=== PATIENT | male | born 1980 | race African-American/Black ===

== ENCOUNTER 2017-08-15 20:15 | Emergency (ER) | payer OTHER ==
[~2017-08-15] VITALS: Ht 185.4 cm; Wt 77.1 kg
[2017-08-15] MEDS ORDERED: IBUPROFEN 800800 M1 PO (21:55)
[2017-08-16 04:23] VITALS: BP 98/68
== END 2017-08-16 01:00 | disposition home or self-care (01) ==
LOC: ER 20:15
DX: S01.311A Laceration without foreign body of right ear, initial encounter (principal); G35 Multiple sclerosis; I10 Essential (primary) hypertension; F17.210 Nicotine dependence, cigarettes, uncomplicated; W05.0XXA Fall from non-moving wheelchair, initial encounter; Y93.89 Activity, other specified; Y92.89 Other specified places as the place of occurrence of the external cause; Y99.8 Other external cause status